=== PATIENT | female | born 1985 | race Two or more races ===

== ENCOUNTER 2017-06-10 08:21 | Outpatient (CLI) | payer BC ==
[2017-06-11 12:15] LABS: *TESTOSTERONE, SERUM 43 ng/dL (8-48); ESTRADIOL 189.7 pg/mL (.); FOLLICLE STIMULATION HORMONE 5.4 mIU/mL (.); LUTEINIZING HORMONE 12.4 mIU/mL (.)
== END 2017-06-10 23:59 | disposition home or self-care (01) ==
LOC: MRI 08:21
PROVIDERS: ATTEND Family Medicine
DX: M23.322 Other meniscus derangements, posterior horn of medial meniscus, left knee (principal); M22.42 Chondromalacia patellae, left knee; N92.6 Irregular menstruation, unspecified
CPT/HCPCS: 36415; 73721-TC; 82670; 83001; 83002; 84146; 84403

== ENCOUNTER 2017-07-06 14:27 | Outpatient (CLI) | payer BC | END 2017-07-06 23:59 | disposition home or self-care (01) | LOC: LAB 14:27 | PROVIDERS: ATTEND Family Medicine | DX: Z12.4 Encounter for screening for malignant neoplasm of cervix (principal); Z11.3 Encounter for screening for infections with a predominantly sexual mode of transmission | CPT/HCPCS: 88142 ==

== ENCOUNTER 2017-07-10 09:01 | Outpatient (CLI) | payer BC | END 2017-07-10 23:59 | disposition home or self-care (01) | LOC: US 09:01 | PROVIDERS: ATTEND Family Medicine | DX: N83.201 Unspecified ovarian cyst, right side (principal) | CPT/HCPCS: 76856-TC ==

== ENCOUNTER 2017-07-21 11:37 | Outpatient (CLI) | payer BC | END 2017-07-21 23:59 | disposition home or self-care (01) | LOC: LAB 11:37 | PROVIDERS: ATTEND Family Medicine | DX: N83.209 Unspecified ovarian cyst, unspecified side (principal); M25.572 Pain in left ankle and joints of left foot | CPT/HCPCS: 36415; 84550-TC; 86304 ==

== ENCOUNTER 2017-09-01 08:40 | Outpatient (CLI) | payer BC | END 2017-09-01 23:59 | disposition home or self-care (01) | LOC: US 08:40 | PROVIDERS: ATTEND Family Medicine | DX: M25.472 Effusion, left ankle (principal); N83.201 Unspecified ovarian cyst, right side; R93.8 Abnormal findings on diagnostic imaging of other specified body structures | CPT/HCPCS: 73610-TC; 76856-TC ==

== ENCOUNTER 2017-12-01 09:54 | Outpatient (CLI) | payer BC | END 2017-12-01 23:59 | disposition home or self-care (01) | LOC: RAD 09:54 | PROVIDERS: ATTEND Family Medicine | DX: J45.909 Unspecified asthma, uncomplicated (principal) | CPT/HCPCS: 71046 ==

== ENCOUNTER 2018-02-04 15:05 | Outpatient (CLI) | payer BC | END 2018-02-04 23:59 | disposition home or self-care (01) | LOC: RAD 15:05 | PROVIDERS: ATTEND Family Medicine | DX: J98.6 Disorders of diaphragm (principal) | CPT/HCPCS: 71046 ==

== ENCOUNTER 2018-02-11 14:38 | Outpatient (CLI) | payer BC | END 2018-02-11 23:59 | disposition home or self-care (01) | LOC: CARD 14:38 | PROVIDERS: ATTEND Family Medicine | DX: R05 Cough (principal) | CPT/HCPCS: 93307-TC ==